=== PATIENT | female | born 1985 | race Caucasian/White ===

== ENCOUNTER 2016-10-05 | Emergency (ER) | payer OTHER | END 2016-10-05 05:39 | disposition home or self-care (01) | DX: H81.10 Benign paroxysmal vertigo, unspecified ear (principal) ==

== ENCOUNTER 2018-01-10 18:43 | Emergency (ER) | payer OTHER ==
[2018-01-10 19:40] LABS: BASOPHILS # (AUTO) 0.1 10^3/uL (0.0-0.1); EOSINOPHILS # (AUTO) 0.1 10^3/uL (0.0-0.7); EOSINOPHILS % (AUTO) 1.5 %; HGB - HEMOGLOBIN 13.5 g/dL (12.0-16.0); LYMPHOCYTES # (AUTO) 1.9 10^3/uL (1.5-3.5); LYMPHOCYTES % (AUTO) 32.6 %; MEAN CORPUSCULAR HEMOGLOBIN 29.9 pg (27.0-31.0); MEAN CORPUSCULAR HGB CONC 33.5 g/dL (32.0-36.0); MEAN CORPUSCULAR VOLUME 89.3 fL (81.0-99.0); MEAN PLATELET VOLUME 8.9 fL (7.9-10.8); MONOCYTES # (AUTO) 0.5 10^3/uL (0.0-1.0); MONOCYTES % (AUTO) 8.9 %; NEUTROPHILS # (AUTO) 3.2 10^3/uL (1.5-6.6); PLT - PLATELET COUNT 243 10^3/uL (130-450); RED BLOOD COUNT 4.53 10^6/uL (4.20-5.40); RED CELL DISTRIBUTION WIDTH 13.1 % (12.0-15.0); WHITE BLOOD COUNT 5.7 x10^3/uL (4.8-10.8)
--- NOTE | 2018-01-10 19:51 | ED Physician Documentation ---
PD HPI CHEST PAIN - Stated complaint Stated Complaint: CHEST PX - Chief complaint Chief Complaint: Cardiac - History obtained from History obtained from: Patient, Family - History of Present Illness Timing - onset: How many days ago (3) Timing - onset during: Rest Timing - duration: Minutes (5) Timing - details: Abrupt onset, Intermittant Pain level max: 4 Pain level now: 0 Quality: Pressure, Aching Location: Left chest Radiation: Other (non-radiating) Improved by: Other (nothing, resolves spontaneously. occurs 4-5 times per day. Took zantac x1 without relief.) Worsened by: Other (nothing) Associated symptoms: No: Shortness of air, Diaphoresis, Nausea, Vomiting, Feeling faint / dizzy, General Weakness, Palpitations, Cough, Other Similar symptoms before: Has not had sx before Recently seen: Not recently seen Review of Systems Ten Systems: 10 systems reviewed and negative Constitutional: denies: Fever, Chills Ears: denies: Ear pain Nose: denies: Rhinorrhea / runny nose, Congestion Throat: denies: Sore throat Cardiac: denies: Palpitations Respiratory: denies: Dyspnea, Cough GI: denies: Abdominal Pain, Nausea, Vomiting, Diarrhea : denies: Dysuria, Frequency, Hesitancy, Now EGA Skin: denies: Rash Musculoskeletal: denies: Neck pain, Back pain, Extremity swelling PD PAST MEDICAL HISTORY - Past Medical History Past Medical History: Yes Cardiovascular: None Respiratory: None Neuro: None Endocrine/Autoimmune: None GI: None BOOK RETAILER: None : None HEENT: None Psych: None Musculoskeletal: None Derm: None Other Past Medical History: VERTIGO... - Past Surgical History Past Surgical History: No - Present Medications Home Medications: Ambulatory Orders Medication Instructions Recorded Confirmed Pnv95/Iron Fum/Folic Acid 1 tab PO DAILY 10/05/16 10/05/16 [ [place]] - Allergies Allergies/Adverse Reactions: Allergies Allergy/AdvReac Type Severity Reaction Status Date / Time Penicillins Allergy Mild Hives Verified 01/10/18 18:55 - Social History Does the pt smoke?: No Smoking Status: Never smoker Does the pt drink ETOH?: No Does the pt have substance abuse?: No - Immunizations Immunizations are current?: Yes - POLST Patient has POLST: No PD ED PE NORMAL - Vitals Vital signs reviewed: Yes - General General: Alert and oriented X 3, No acute distress - HEENT HEENT: Moist mucous membranes - Neck Neck: Supple, no meningeal sign, No JVD, No bruit - Cardiac Cardiac: RRR, No murmur, Strong equal pulses - Respiratory Respiratory: No respiratory distress, Clear bilaterally, Other (No tenderness across the chest wall) - Abdomen Abdomen: Soft, Non tender, Non distended - Back Back: No CVA TTP, No spinal TTP - Derm Derm: Warm and dry - Extremities Extremities: No edema, No calf tenderness / cord - Neuro Neuro: Alert and oriented X 3 - Psych Psych: Normal mood, Normal affect Results - Vitals Vitals: Oxygen O2 Source Room air - EKG (time done) 1850 Rate: Rate (enter#) (61) Rhythm: NSR [place]: Normal Intervals: Normal RI QRS: Normal Ischemia: Normal ST segments - Labs Labs: Laboratory Tests 01/10/18 01/10/18 01/10/18 19:30 19:30 19:30 WBC 5.7 RBC 4.53 Hgb 13.5 Hct 40.4 MCV 89.3 MCH 29.9 MCHC 33.5 RDW 13.1 Plt Count 243 MPV 8.9 Neut # 3.2 Lymph # 1.9 Foster # 0.5 Eos # 0.1 Baso # 0.1 Absolute Nucleated RBC 0.00 Nucleated RBC % 0.1 Sodium 136 Potassium 4.1 Chloride 101 Carbon Dioxide 26 Anion Gap 9.0 BUN 13 Creatinine 0.7 Estimated GFR (MDRD) 98 Glucose 113 H Calcium 9.1 Total Bilirubin 0.9 AST 23 ALT 13 Alkaline Phosphatase 37 L Troponin I < 0.04 Total Protein 7.3 Albumin 4.4 Globulin 2.9 Albumin/Globulin Ratio 1.5 Lipase 25 - Rads (name of study) cxr Radiology: Prelim report reviewed, EMP read contemporaneously, See rad report ( no acute disease) PD MEDICAL DECISION MAKING - ED course Complexity details: reviewed results, re-evaluated patient, considered differential (No ST elevation LA, no aortic dissection, no PE, no tension pneumothorax, no aortic aneurysm), d/w patient, d/w family ED course: Patient is a 32-year-old female who presents to the emergency department with intermittent left-sided chest pain for the past 3 days. Asymptomatic in the emergency department. No acute findings on EKG, laboratory testing or chest x- ray. No evidence of pulmonary embolus clinically. No recent illnesses. No history of young cardiac disease in the family. We will have her follow-up with her doctor for further evaluation. Patient counseled regarding signs and symptoms for which I believe and urgent re-evaluation would be necessary. Patient with good understanding of and agreement to plan and is comfortable going home at this time This document was made in part using voice recognition software. While efforts are made to proofread this document, sound alike and grammatical errors may occur. Abdomen remained soft, nontender nondistended on serial exam. Departure - Departure Disposition: Home, Self Care Clinical Impression: Chest pain Qualifiers: Chest pain type: unspecified Qualified Code(s): R07.9 - Chest pain, unspecified Condition: Good Instructions: ED Chest Pain Atypical Unkn Cause Follow-Up: MT WATSON DO [Primary Care Provider] - Within 1 week Comments: The cause of your symptoms is unclear today. Your tests here are normal. Return if you worsen. Discharge Date/Time: 01/10/18 20:09
--- NOTE | 2018-01-10 19:57 | XRAY Report ---
EXAM: CHEST RADIOGRAPHY EXAM DATE: 01/10/2018 07:49 PM. CLINICAL HISTORY: Chest pain. COMPARISON: None. TECHNIQUE: 1 view. FINDINGS: Lungs/Pleura: Clear. No effusion or pneumothorax. Mediastinum: Within exam limitations, the cardiomediastinal contour is normal. Upper lobe vessels not distended. Other: None. IMPRESSION: Normal single view chest. [facility] Referring Provider Line: [phone] SITE ID: [id number]
[2018-01-10 19:58] LABS: ALBUMIN 4.4 g/dL (3.2-5.5); ALBUMIN/GLOBULIN RATIO 1.5 (1.0-2.2); BILIRUBIN,TOTAL 0.9 mg/dL (0.2-1.0); CALCIUM 9.1 mg/dL (8.5-10.3); CREATININE 0.7 mg/dL (0.4-1.0); TOTAL PROTEIN 7.3 g/dL (6.7-8.2)
[2018-01-10 20:09] VITALS: BP 120/83
== END 2018-01-10 20:09 | disposition home or self-care (01) ==
LOC: ED 18:43
DX: R07.9 Chest pain, unspecified (principal)
CPT/HCPCS: 36415; 71045; 80053; 83690; 84484; 85025; 93005; 99283

== ENCOUNTER 2018-11-16 08:46 | Emergency (ER) | payer OTHER ==
[2018-11-16 08:50] VITALS: BP 118/76
[2018-11-16] MEDS ORDERED: DEXAMETHASONE 10 MG/ML VIAL PO STA (09:10)
[2018-11-16] MEDS ORDERED: ACETAMINOPHEN 500 MG TABLET PO STA (09:10)
[2018-11-16] MEDS ORDERED: BENZONATATE 100 MG CAPSULE PO STA (09:14)
--- NOTE | 2018-11-16 09:19 | ED Physician Documentation ---
PD HPI URI - Stated complaint Stated Complaint: RT SIDE FACIAL PX - Chief complaint Chief Complaint: Heent - Additional information Additional information: 33-year-old female presents the emergency department with 3 days of nasal congestion, ear fullness, Sore throat, cough, fatigue and general weakness for the past several days. The patient has had a cough recently. The patient denies any shortness of breath, productive sputum, respiratory distress or wheezing. No other associated symptoms. No triggering factors. No relieving factors. Review of Systems Constitutional: reports: Chills, Myalgias, Fatigue Eyes: denies: Loss of vision, Discharge Ears: reports: Ear pain Nose: reports: Rhinorrhea / runny nose, Congestion Throat: reports: Sore throat Cardiac: denies: Chest pain / pressure Respiratory: reports: Cough. 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 HEENT: None Psych: None Musculoskeletal: None Derm: None - Past Surgical History Past Surgical History: No - Present Medications Home Medications: Ambulatory Orders Medication Instructions Recorded Confirmed Benzonatate [Tessalon Perle] 100 mg PO TID PRN #30 capsule 11/16/18 Pseudoephedrine HCl [Sudafed 12 120 mg PO BID PRN #30 tablet.er 11/16/18 Hour] - Allergies Allergies/Adverse Reactions: Allergies Allergy/AdvReac Type Severity Reaction Status Date / Time Penicillins Allergy Mild Hives Verified 11/16/18 08:50 - Social History Does the pt smoke?: No Smoking Status: Never smoker Does the pt drink ETOH?: Yes Does the pt have substance abuse?: No - Immunizations Immunizations are current?: Yes - POLST Patient has POLST: No PD ED PE NORMAL - General General: Alert and oriented X 3, No acute distress - HEENT HEENT: Atraumatic, PERRL, EOMI, Ears normal, Moist mucous membranes, Pharynx benign - Neck Neck: Supple, no meningeal sign - Cardiac Cardiac: RRR, Strong equal pulses - Respiratory Respiratory: No respiratory distress, Clear bilaterally - Derm Derm: Normal color - Extremities Extremities: No deformity - Neuro Neuro: Alert and oriented X 3, Normal speech - Psych Psych: Normal affect Results - Vitals Vitals: Vital Signs - 24 hr 11/16/18 08:48 Temperature 36.5 C Heart Rate 84 Respiratory 16 Rate Blood Pressure 118/76 O2 Saturation 98 Oxygen O2 Source Room air - Labs Labs: Laboratory Tests 11/16/18 08:52 Group A Strep Rapid Negative PD MEDICAL DECISION MAKING - ED course ED course: The patient's symptoms seem to represent a viral process, the patient appears appropriate for discharge and ongoing outpatient management. Presently the patient has no physical findings to suggest sepsis, acute otitis media, strep pharyngitis, pneumonia or an acute issue that would necessitate antibiotic therapy. The patient will follow up with primary care for ongoing management and will return to the emergency department for any worsening or any concerns. Departure - Departure Disposition: 01 Home, Self Care Clinical Impression: URI (upper respiratory infection) Qualifiers: URI type: unspecified viral URI Qualified Code(s): J06.9 - Acute upper respiratory infection, unspecified Condition: Good Instructions: ED URI Viral Follow-Up: MT WATSON DO [Primary Care Provider] - Within 1 week Prescriptions: Benzonatate [Tessalon Perle] 100 mg PO TID PRN #30 capsule PRN Reason: Cough Pseudoephedrine HCl [Sudafed 12 Hour] 120 mg PO BID PRN #30 tablet.er PRN Reason: Cold Symptons Comments: Please follow-up with primary care for recheck and reevaluation Please return to the emergency department for any worsening or any concerns Forms: Activity restrictions
== END 2018-11-16 09:10 | disposition home or self-care (01) ==
LOC: ED 08:46
DX: J02.9 Acute pharyngitis, unspecified (principal); R05 Cough; J06.9 Acute upper respiratory infection, unspecified
CPT/HCPCS: 87070; 87430; 99283; A9270